=== PATIENT | female | born 1950 | race Caucasian/White ===

== ENCOUNTER 2017-02-07 11:15 | Observation (INO) | payer MEDICARE, OTHER ==
[2017-02-07] VITALS (7 sets, daily range): BP systolic 148–172; BP diastolic 72–78; PULSE 58–69; RESP 17–20; TEMP 97.5–99.9; O2SAT 94–99
[~2017-02-07] VITALS: Ht 154.9 cm; Wt 72.5 kg
[~2017-02-07 11:15] MED LIST: ASPI81 PO; ATAC16TA4 PO; CHEL50TA PO; CIPR0.3S LEFT EAR; CIPR750T10 PO; CYMB30CA PO; DILT240C7 PO; FAMC500T23 PO; FISH1000 PO; MESA1000R PR; METO25CR OR; THYR15 PO; WAL-10TA2 PO
--- NOTE | 2017-02-07 11:41 | PD ---
Physical Exam Time Seen by Provider: 11:36 Narrative 66 y/o female here with slurred speech, facial droop which started 2 weeks ago. She saw her PCP Shabnam Lockhart 2 days ago, had outpatient ct brain as well as US of carotids 2 days ago. Seen by foot and ankle surgeon(Chip) today and sent here. Vital signs reviewed. Seen at triage desk. Awaiting bed placement. Data Data Last Documented VS Vital Signs Date Time Temp Pulse Resp B/P Pulse Ox O2 Delivery O2 Flow Rate FiO2 02/07/17 11:17 99.9 66 20 172/78 94 Room Air [facility] Medical Record Reviewed: Yes Supervised Visit with CHRIS: No Tj Atkins Feb 07, 2017 11:40
--- NOTE | 2017-02-07 11:54 | PD ---
HPI Chief Complaint: Neuro Symptoms/ Deficits Time Seen by Provider: 11:54 Travel History International Travel<30 days: No Contact w/Intl Traveler<30days: No Traveled to known affect area: No History of Present Illness HPI 66 YO F presents to the ED for evaluation of 2 week history of facial droop, slurred speech. Patient unsure when symptoms first started. She states that she feels like her tongue protrudes from her mouth. She denies fever, chills, headaches, dizziness, difficulties with gait, weakness of the extremities, loss of strength, chest pain, palpitations. She saw her primary care provider (Ashlee Peoples) 2 days ago and had outpatient imaging of the brain and carotids. She saw her linux network administrator, Dr. Saunders today. He observed changes in the patient's speech and advised her to come to the ED. PFSH Past Medical History Anxiety: Yes Depression: Yes Cerebrovascular Accident: Yes Diverticulitis: Yes Gastrointestinal Disorders: Yes (ULCERATIVE COLITIS) Genitourinary: Yes (GENITAL HERPES) Hypertension: Yes Musculoskeletal: Yes (SCOLIOSIS WITH A NOBLE) Neurologic: Yes (HX MENINGITIS) Psychiatric: Yes (SUICIDE ATTEMPT 2004) ?: Not Past Surgical History Gynecologic Surgery: Yes (OOPHERECTOMY 2004) Hysterectomy: Yes Other Surgery: Yes (feet) Social History Alcohol Use: No Tobacco Use: No Substance Use: No Allergies-Medications (Allergen,Severity, Reaction): Coded Allergies: Augmentin (Verified Allergy, Mild, 12/09/15) Codeine (Verified Allergy, Mild, 12/09/15) Percocet (Verified Allergy, Mild, 12/09/15) Sulfa (Verified Allergy, Mild, 12/09/15) Tetanus Immune Globulin (Verified Allergy, Mild, 12/09/15) Xanax (Verified Allergy, Mild, 12/09/15) Reported Meds & Prescriptions Reported Meds & Active Scripts Active Reported Gabapentin 300 Mg Cap 300 Mg PO HS Thyroid (Thyroid (Porcine) (Bulk)) 1 Pow Pow 30 DAILY Metoprolol Succinate ER 24 HR (Metoprolol Succinate) 25 Mg Tab 25 Mg PO DAILY Canasa Supp (Mesalamine) 1,000 Mg Supp 1,000 Mg RECTAL HS [famvir] [address] (Duloxetine HCl) 30 Mg Capdr 30 Mg PO DAILY Aspirin 81 Mg Chew 81 Mg CHEW DAILY Review of Systems Except as stated in HPI: all other systems reviewed are Neg Physical Exam Narrative GENERAL: Well-nourished, well-developed white female in no acute distress. SKIN: Focused skin assessment warm/dry. HEAD: Normocephalic. Atraumatic. EYES: No scleral icterus. No injection or drainage. PERRLA. EOMI. NECK: Supple, trachea midline. No JVD or lymphadenopathy. CARDIOVASCULAR: Regular rate and rhythm without murmurs, gallops, or rubs. RESPIRATORY: Breath sounds clear and equal bilaterally. No accessory muscle use. GASTROINTESTINAL: Abdomen soft, non-tender, nondistended. Active bowel sounds. MUSCULOSKELETAL: No cyanosis, or edema. NEUROLOGICAL: Awake and alert. Cranial nerves II through XII intact. Motor and sensory grossly within normal limits. 5/5 muscle strength in all muscle groups. No pronator drift. No ataxia. Slurred speech. Patient's legs are constantly in motion which she states is normal for her. BACK: Nontender without obvious deformity. No CVA tenderness. Data Data Last Documented VS Vital Signs Date Time Temp Pulse Resp B/P Pulse Ox O2 Delivery O2 Flow Rate FiO2 02/07/17 12:44 99 02/07/17 11:17 99.9 66 20 172/[address] Brain W/O Iv Contrast(Rout) (02/07/17 12:20) Electrocardiogram (02/07/17 12:37) Complete Blood Count With Diff (02/07/17 12:37) Comprehensive Metabolic Panel (02/07/17 12:37) Magnesium (Mg) (02/07/17 12:37) Ckmb (Isoenzyme) Profile (02/07/17 12:37) Troponin I (02/07/17 12:37) Act Partial Throm Time (Ptt) (02/07/17 12:37) Prothrombin Time / Inr (Pt) (02/07/17 12:37) Chest, Single Ap (02/07/17 12:37) Ecg Monitoring (02/07/17 12:37) Iv Access Insert/Monitor (02/07/17 12:37) Oximetry (02/07/17 12:37) Sodium Chloride 0.9% Flush (Ns Flush) (02/07/17 12:45) CKMB (02/07/17 12:40) CKMB% (02/07/17 12:40) Aspirin Chew (Aspirin Chew) (02/08/17 09:00) Duloxetine Dr (Cymbalta Dr) (02/08/17 09:00) Gabapentin (Neurontin) (02/07/17 21:00) Mesalamine Supp (Canasa Supp) (02/07/17 21:00) Metoprolol Succinate Er (Toprol Xl) (02/08/17 09:00) Admit Order (Ed Use Only) (02/07/17 14:06) Labs Laboratory Tests Test 02/07/17 12:40 White Blood Count 8.1 TH/MM3 Red Blood Count 4.38 MIL/MM3 Hemoglobin 13.3 GM/DL Hematocrit 41.3 % Mean Corpuscular Volume 94.3 FL Mean Corpuscular Hemoglobin 30.3 PG Mean Corpuscular Hemoglobin 32.2 % Concent Red Cell Distribution Width 14.2 % Platelet Count 207 TH/MM3 Mean Platelet Volume 11.7 FL Neutrophils (%) (Auto) 70.5 % Lymphocytes (%) (Auto) 18.7 % Monocytes (%) (Auto) 9.0 % Eosinophils (%) (Auto) 1.2 % Basophils (%) (Auto) 0.6 % Neutrophils # (Auto) 5.7 TH/MM3 Lymphocytes # (Auto) 1.5 TH/MM3 Monocytes # (Auto) 0.7 TH/MM3 Eosinophils # (Auto) 0.1 TH/MM3 Basophils # (Auto) 0.1 TH/MM3 CBC Comment DIFF FINAL Differential Comment Prothrombin Time 11.3 SEC Prothromb Time International 1.0 RATIO Ratio Activated Partial 27.5 SEC Thromboplast Time Sodium Level 138 MEQ/L Potassium Level 4.1 MEQ/L Chloride Level 100 MEQ/L Carbon Dioxide Level 30.7 MEQ/L Anion Gap 7 MEQ/L Blood Urea Nitrogen 16 MG/DL Creatinine 0.71 MG/DL Estimat Glomerular Filtration 82 ML/MIN Rate Random Glucose 83 MG/DL Calcium Level 9.4 MG/DL Magnesium Level 2.0 MG/DL Total Bilirubin 1.6 MG/DL Aspartate Amino Transf 28 U/L (AST/SGOT) Alanine Aminotransferase 29 U/L (ALT/SGPT) Alkaline Phosphatase 110 U/L Total Creatine Kinase 176 U/L Creatine Kinase MB 3.8 NG/ML Troponin I LESS THAN 0.02 NG/ML Total Protein 7.9 GM/DL Albumin 3.9 GM/DL [facility] Medical Decision Making Medical Screen Exam Complete: Yes Emergency Medical Condition: Yes Interpretation(s) EKG rate 60, paced rhythm CA interval through 20 ms, QRS 92 ms, QTC 409 ms. Normal axis. Reviewed by Dr. Johns. Differential Diagnosis stroke versus TIA versus electrolyte abnormality versus Narrative Course 66 YO F with PMH of UC presents to the ED for evaluation of 2 week history of facial droop, slurred speech. Patient unsure when symptoms first started. She states that she feels like her tongue protrudes from her mouth. She saw PCP ( Ashlee Peoples) 2 days ago and had outpatient imaging of the brain and carotids. Dr. Saunders noted changes in the patient's speech in the office today and advised her to come to the ED. Vitals reviewed. Physical exam reveals very subtle left facial droop, slurred speech. The patient is in constant motion which she states is her normal. No pronator drift, extremity weakness or ataxia. Dr. Johns and I reviewed the outpatient images, no official read yet. CBC: WBC 8.1. Hemoglobin 13.3 CMP: Bilirubin 1.6 INR: 1.0 UA: Moderate bacteria, culture pending CT brain: Mild cerebral atrophy and chronic ischemic vessel vasculopathy CXR: Normal exam, thoracic spinal noble Cardiac enzymes: CK-MB 3.8 Magnesium 20 EKG as above Discussed the patient, work up and plan with Dr. Johns. Patient agreeable to admission. I spoke with Dr. Murillo who will accept the patient for observation on the medicine service. Please see medicine notes for disposition. Diagnosis Primary Impression: TIA (transient ischemic attack) Qualified Code: G45.9 - Transient cerebral ischemia, unspecified type Additional Impressions: Slurred speech Facial droop Admitting Information Admitting Physician Requests: Observation Marci Noel Feb 07, 2017 11:54 Marci Noel Feb 07, 2017 11:54
[2017-02-07] MEDS ORDERED: THYR0.237 (11:58)
[2017-02-07] MEDS ORDERED: CANA10002 RECTAL (11:58)
[2017-02-07] MEDS ORDERED: METO25TA6 PO (11:58)
[2017-02-07] MEDS ORDERED: GABA300C5 PO (11:58)
[2017-02-07] MEDS ORDERED: famvir (11:58)
[2017-02-07] MEDS ORDERED: ASPI81CH CHEW (11:58)
[2017-02-07] MEDS ORDERED: CYMB30CA PO (11:58)
[2017-02-07] MEDS ORDERED: SODIUM CHLORIDE 0.9% FLUSH 10 ML FLUSH IVF PRN (12:45)
[2017-02-07 12:53] LABS: AUTOMATED NEUTROPHIL # 5.7 TH/MM3 (1.8-7.7); BASOPHIL # 0.1 TH/MM3 (0-0.2); BASOPHIL % 0.6 % (0.0-2.0); EOSINOPHIL # 0.1 TH/MM3 (0-0.4); EOSINOPHIL % 1.2 % (0.0-4.0); HEMATOCRIT 41.3 % (35.0-46.0); HEMO FLAGS DIFF FINAL; LYMPH % 18.7 % (9.0-44.0); LYMPHOCYTE # 1.5 TH/MM3 (1.0-4.8); MEAN CELL VOLUME 94.3 FL (80.0-100.0); MEAN CORPUSCULAR HEMOGLOBIN 30.3 PG (27.0-34.0); MEAN CORPUSCULAR HGB CONC 32.2 % (32.0-36.0); NEUT % 70.5 % (16.0-70.0); PLATELET COUNT 207 TH/MM3 (150-450); RED BLOOD COUNT 4.38 MIL/MM3 (4.00-5.30); RED CELL DISTRIBUTION WIDTH 14.2 % (11.6-17.2); WHITE BLOOD COUNT 8.1 TH/MM3 (4.0-11.0)
[2017-02-07 13:05] LABS: APTT (PATIENT) 27.5 SEC (24.3-30.1); PROTHROMBIN TIME - PATIENT 11.3 SEC (9.8-11.6)
[2017-02-07 13:18] LABS: ALT (GPT) 29 U/L (10-53)
[2017-02-07 13:22] LABS: AST (GOT) 28 U/L (15-37); CHLORIDE 100 MEQ/L (98-107); GLOMERULAR FILTRATION RATE 82 ML/MIN (>89); POTASSIUM 4.1 MEQ/L (3.5-5.1); TOTAL BILIRUBIN ADULT 1.6 MG/DL (0.2-1.0)
[2017-02-07 13:23] LABS: ALKALINE PHOSPHATASE 110 U/L (45-117); ANION GAP 7 MEQ/L (5-15); BICARBONATE 30.7 MEQ/L (21.0-32.0); BLOOD UREA NITROGEN 16 MG/DL (7-18); CREATINE KINASE 176 U/L (26-192); SODIUM (NA) 138 MEQ/L (136-145)
[2017-02-07 13:36] LABS: CKMB 3.8 NG/ML (0.5-3.6)
--- NOTE | 2017-02-07 13:45 | RADRPT ---
EXAM DATE/TIME: 02/07/2017 13:21 [facility] COMPARISON: No previous studies available for comparison. INDICATIONS : Slurred speech with mild left facial droop for 2 weeks. RADIATION DOSE: 56.35 CTDIvol (mGy) MEDICAL HISTORY : Hypertension. SURGICAL HISTORY : None. ENCOUNTER: Initial ACUITY: 2 weeks PAIN SCALE: 0/10 LOCATION: cranial TECHNIQUE: Multiple contiguous axial images were obtained of the head. Using automated exposure control and adj ustment of the mA and/or kV according to patient size, radiation dose was kept as low as reasonably a chievable to obtain optimal diagnostic quality images. DICOM format image data is available electro nically for review and comparison. FINDINGS: CEREBRUM: The ventricles are normal for age. Scattered areas of low-attenuation throughout the white matter. Mi ld cerebral atrophy. No evidence of midline shift, mass lesion, hemorrhage or acute infarction. No extra-axial fluid collections are seen. POSTERIOR FOSSA: The cerebellum and brainstem are intact. The 4th ventricle is midline. The cerebellopontine angle i s unremarkable. EXTRACRANIAL: The visualized portion of the orbits is intact. SKULL: The calvaria is intact. No evidence of skull fracture. CONCLUSION: Mild cerebral atrophy and chronic ischemic small vessel vasculopathy. Lenny Tong MD on February 07, 2017 at 13:43 Board Certified Radiologist. This report was verified electronically.
[2017-02-07] MEDS ORDERED: LACTULOSE SYRUP 20 GM/30 ML CUP PO PRN (14:15)
[2017-02-07] MEDS ORDERED: SODIUM CHLORIDE 0.9% FLUSH 10 ML FLUSH IV FLUSH PRN (14:15)
[2017-02-07] MEDS ORDERED: TEMAZEPAM 15 MG CAP PO PRN (14:15)
[2017-02-07] MEDS ORDERED: BISACODYL 10 MG SUPP RECTAL PRN (14:15)
[2017-02-07] MEDS ORDERED: NALOXONE HCL 0.4 MG/ML AMP IV PRN (14:15)
[2017-02-07] MEDS ORDERED: ONDANSETRON HCL 4 MG/2 ML VIAL IVP PRN (14:15)
[2017-02-07] MEDS ORDERED: SENNOSIDES 8.6 MG TAB PO PRN (14:15)
[2017-02-07] MEDS ORDERED: MAGNESIUM HYDROXIDE SUSP 30 ML CUP PO PRN (14:15)
--- NOTE | 2017-02-07 14:28 | RADRPT ---
EXAM DATE/TIME: 02/07/2017 12:51 [facility] COMPARISON: No previous studies available for comparison. INDICATIONS : Possible stroke 2 weeks ago, left side of face numbness. MEDICAL HISTORY : None. SURGICAL HISTORY : None. ENCOUNTER: Initial ACUITY: 2 weeks PAIN SCORE: 0/10 LOCATION: Bilateral chest FINDINGS: A single view of the chest demonstrates the lungs to be symmetrically aerated without evidence of mas s, infiltrate or effusion. The cardiomediastinal contours are unremarkable. Osseous structures are intact. CONCLUSION: Normal examination. Thoracic spine olivia. Robin Velásquez MD on February 07, 2017 at 14:26 Board Certified Radiologist. This report was verified electronically.
--- NOTE | 2017-02-07 16:56 | ECHRPT ---
Indication: CONCLUSIONS The left ventricular systolic function is normal with an estimated ejection fraction in the range of 55-60%. Wall thickness is measured at the upper limits of normal. Mild mitral valve regurgitation. There is mild tricuspid valve regurgitation. BP: 172 / 78 HR: 70 Rhythm: Sinus MEASUREMENTS (Male / Female) Normal Values Technical Quality:Good 2D ECHO LV Diastolic Diameter PLAX 5.3 cm 4.2 - 5.9 / 3.9 - 5.3 cm LV Systolic Diameter PLAX 4.0 cm IVS Diastolic Thickness 1.1 cm 0.6 - 1.0 / 0.6 - 0.9 cm LVPW Diastolic Thickness 1.1 cm 0.6 - 1.0 / 0.6 - 0.9 cm LV Relative Wall Thickness 0.4 LVOT Diameter 2.0 cm M-MODE Aortic Root Diameter MM 2.4 cm LA Systolic Diameter MM 3.0 cm LA Ao Ratio MM 1.3 AV Cusp Separation MM 1.6 cm DOPPLER AV Peak Velocity 153.0 cm/s AV Peak Gradient 9.4 mmHg LVOT Peak Velocity 101.0 cm/s LVOT Peak Gradient 4.1 mmHg AV Area Cont Eq pk 2.1 cm MR Peak Velocity 247.0 cm/s MR Peak Gradient 24.4 mmHg Mitral E Point Velocity 69.1 cm/s Mitral A Point Velocity 48.9 cm/s Mitral E to A Ratio 1.4 LV E' Lateral Velocity 4.8 cm/s Mitral E to LV E' Lateral Ratio 14.5 LV E' Septal Velocity 7.6 cm/s Mitral E to LV E' Septal Ratio 9.1 TR Peak Velocity 259.0 cm/s TR Peak Gradient 26.8 mmHg PV Peak Velocity 110.0 cm/s PV Peak Gradient 4.8 mmHg FINDINGS LEFT VENTRICLE The left ventricular systolic function is normal with an estimated ejection fraction in the range of 55-60%. Wall thickness is measured at the upper limits of normal. Normal left ventricular size. RIGHT VENTRICLE Normal right ventricular size and systolic function. LEFT ATRIUM The left atrial size is normal. RIGHT ATRIUM The right atrial size is normal. ATRIAL SEPTUM The interatrial septum not well visualized. AORTA The aortic root and proximal ascending aorta are not well visualized. MITRAL VALVE Mild mitral valve regurgitation. Structurally normal mitral valve. AORTIC VALVE Trileaflet aortic valve. No aortic valve stenosis or regurgitation. TRICUSPID VALVE There is mild tricuspid valve regurgitation. The estimated pulmonary arterial pressure is 37 mmHg. PULMONARY VALVE The pulmonary valve is not well visualized. No pulmonary valve regurgitation. VESSELS The inferior vena cava is normal in size. PERICARDIUM No pericardial effusion. Smith Ponce DO (Electronically Signed) Final Date:07 February 2017 16:55
--- NOTE | 2017-02-07 17:28 | MH ---
cc: HILARIO FONSECA MD DATE OF ADMISSION: 02/07/2017 CHIEF COMPLAINT: Facial droop with change in speech. TRAVEL IN THE LAST THIRTY DAYS: None. HISTORY OF PRESENT ILLNESS: This is a pleasant 66-year-old white female who had been in her usual state of health up until the past few weeks. The patient states that she did not note any acute changes in her speech or mouth, but noted that she felt her tongue was larger than normal. She also noted some mild erythema and burning on her tongue. She used toothpaste to coat her tongue and to control the pain. The patient states, and according to the record, that her family noticed the change in her speech and facial droop. She went to see her primary care provider approximately two days ago and had outpatient imaging of her brain and carotids. She was seen per cardiology today, Dr. Saunders, and was advised to come to the emergency room for further workup. The patient denies any recent headaches. Denies any change in her stamina. No acute weakness or fatigue. No recent weight gain or weight loss. No chest pain, no shortness of breath. She denies any changes in her balance or gait. She does note chronic tendinitis in her lower extremities, which does affect her walking at times, but this is nothing new to her symptoms. The patient does note some increased stressors in her life but no other acute issues. The patient notes the only changes that she has made in her routine is that she has been taking energy pills but an undisclosed amount or length of time she has been taking them. She has right-sided facial droop and slurred speech with tongue protruding to the left with her speech. The patient has denied any fever. PAST MEDICAL HISTORY: According to the record and the patient: 1. Anxiety. 2. Depressive disorder. 3. Diverticulitis. 4. Ulcerative colitis. 5. Genital herpes. 6. Hypertension. 7. Scoliosis. 8. Degenerative disc disease. 9. History of meningitis. 10. Suicide attempt in 2004. 11. CVA. PAST SURGICAL HISTORY: 1. Hysterectomy. 2. Some type of foot surgery. 3. Oophorectomy. ALLERGIES: 1. AUGMENTIN. 2. CODEINE. 3. PERCOCET. 4. SULFA. 5. TETANUS GLOBULIN. 6. XANAX. 7. THE PATIENT STATES SHE IS ALLERGIC TO MINT BUT DID USE SOME TOOTHPASTE TO COAT HER TONGUE FOR THE PAIN. REPORTED MEDICATIONS: 1. Thyroid medications. 2. Gabapentin. 3. Metoprolol. 4. Cymbalta. 5. Aspirin. 6. Mesalamine. 7. The patient uses a C-PAP at night for her sleep. SOCIAL HISTORY: The patient is and currently lives with her . She has some grandchildren who have been recently visiting but do not live in the home with her. Occasional social mixed drink but this is rare. No tobacco. No illicit drug use. REVIEW OF SYSTEMS: A twelve-point review was obtained. Positives noted in the history of present illness, which include erythema and some mild bleeding of her tongue, right-sided facial droop. She did note positive for tongue erythema and mild edema. Other systems negative or unremarkable unless mentioned in the history of present illness. The patient had denied any fever. PHYSICAL EXAMINATION: VITAL SIGNS: Temperature 99.9, pulse 66, respirations 20, blood pressure 172/78, O2 sat 94 currently on room air. GENERAL: Mildly obese well-nourished white female who looks to be her stated age resting in the bed. She is awake. SKIN: Skin is pink mucous membranes warm and dry. HEAD, EYES, EARS, NOSE, THROAT: No scleral icterus. No exudate. Oral cavity shows strawberries tongue. The tip of the tongue deviates to the left with attempting to speak. She has a right facial droop. NECK: The neck is supple. CARDIOVASCULAR: S1-S2 regular rate and rhythm. No murmurs, rubs, gallops, no edema. Pulses were intact. LUNGS: Essentially clear anteriorly and posteriorly without wheezes, rales or rhonchi. ABDOMEN: Round, soft, nontender, nondistended. Active bowel sounds. : Deferred. MUSCULOSKELETAL: No obvious deformities in her extremities. She can overcome resistance. Her hand quality consultant are equal. NEUROLOGIC: The patient is awake, responding appropriately to simple questions. She does have a noted right facial droop with some tongue deviation to the last. Speech is slurred but understandable. Equal hand quality consultant. 5/5 on her muscle strength. PSYCHIATRIC: Mood and affect are appropriate with some mild anxiety over the current condition. DIAGNOSTIC DATA: WBC count 8.1, RBC 4.38, hemoglobin 13.3, hematocrit 41.3, platelet count 207,000. MPV 11.7. Neutrophil percentage 70.5, monocyte percentage 9. All other differential numbers are normal range. Sodium 138, potassium 4.1, chloride of 100, carbon dioxide 30.7, anion gap 7, BUN 16, creatinine 0.71, GFR 82, glucose 83, bilirubin 1.6. Troponin less than 0.02 with an MB percentage of 3.8. PT and INR 1. IMAGING STUDIES: Chest x-ray shows normal exam. Thoracic spine olivia noted. CT of the head shows mild cerebral atrophy with chronic ischemic small vessel vasculopathy. ASSESSMENT AND PLAN: 1. Possible TIA, rule out CVA with positive findings of facial droop, slurred speech, right facial droop. 2. Anxiety and depressive disorder. 3. Low grade fever, unspecified cause. 4. Degenerative disc disease with history of scoliosis. 5. History of diverticulitis. 6. History of hypertension. PLAN: 1. Monitor in observation. 2. Will monitor neuro checks and vital signs q. 4 and as warranted. 3. Activity can be out of bed but only with assistance. 4. Cardiac ECG monitoring constant. 5. Heart-healthy diet. 6. Gentle hydration with IV fluids. 7. PRN medications for sleep, nausea. 8. Aspirin for DVT prophylaxis as well as heparin subcutaneous. 9. Bowel regimen with laxatives and stool softeners daily and as warranted. 10. Peptic ulcer disease prophylaxis with Protonix. 11. Reconcile medications as warranted. 12. Will have neuro consult and evaluate for his expert opinion. 13. MRI of the brain without contrast has been ordered and pending. 14. Will continue testing and acute workup and neuro consult for further plan of care needed for this patient. We will continue to follow. Dictated by JESUS MANUEL Olivarez. MD MARIEL Goldman/SABINA /3:03 PM /5:04 PM seen, examined by myself, Dr Fonseca, today Discussed with patient Discussed with mid level provider Right facial droop, stroke versus Dickinson's palsy Not Entirely clear if this is lower or upper motor neuron on examination Could not have an MRI of the brain because of a bladder stimulator We will consult neurology The exam, history, and the medical decision-making described in the above note were completed with the assistance of the mid-level provider. I reviewed the findings presented. I attest that I had a [id number] encounter with the patient on the same day, and personally performed and documented my assessment and findings in the medical record. PHYLLIS
[2017-02-07] MEDS: HEPARIN SODIUM - SQ 10,000 UNITS/ML VIAL SQ SCH (17:45)
[2017-02-07] MEDS: ASPIRIN 81 MG CHEW TAB CHEW SCH (17:45)
[2017-02-07] MEDS: PANTOPRAZOLE SOD 40 MG DELAYED RELEASE TAB PO SCH (17:45)
[2017-02-07] MEDS: SODIUM CHLOR 0.9% 1000 ML INJ 1,000 ML IV SCH (17:46)
[2017-02-07] MEDS ORDERED: GABAPENTIN 300 MG CAP PO SCH (21:00)
[2017-02-07] MEDS ORDERED: MESALAMINE 1000 MG SUPP RECTAL SCH (21:00)
[2017-02-07] MEDS: SODIUM CHLORIDE 0.9% FLUSH 10 ML FLUSH IV FLUSH SCH (21:31)
[2017-02-07] MEDS: DOCUSATE SODIUM 50 MG/SENNA 8.6 MG TAB PO SCH (21:31)
--- NOTE | 2017-02-07 22:16 | MB ---
cc: ELDA VALDES M.D. DATE OF CONSULTATION: 02/07/2017 DATE OF : 1950, 66 YEARS OLD REASON FOR CONSULTATION Facial droop, slurred speech. HISTORY OF PRESENT ILLNESS The patient is a 66-year-old woman in the usual state of health up until about two weeks ago, noted that she had some speech changes and the tongue felt numb with some facial asymmetry. Apparently she saw her primary care a couple days ago who sent her here for evaluation. She denies any headache, her states she has had some tremor with her left hand, no weakness in arms or legs, no balance issues. PAST MEDICAL HISTORY 1. Anxiety. 2. Depression. 3. Diverticulitis. 4. Ulcerative colitis. 5. Genital herpes. 6. Hypertension. 7. Scoliosis. 8. Degenerative disc disease. She has a stimulator in her spine. 9. History of meningitis. 10. History of suicide attempt in 2004. 11. Stroke questionable history in the past. PAST SURGICAL HISTORY 1. Hysterectomy. 2. Foot surgery. 3. Oophorectomy. ALLERGIES AUGMENTIN, CODEINE, PERCOCET, SULFA, TETANUS, XANAX, AND I AM TOLD BY THE NURSE SHE IS ALLERGIC TO IODINE. HOME MEDICATIONS 1. Thyroid. 2. Gabapentin. 3. Metoprolol. 4. Cymbalta. 5. Aspirin. 6. Mesalamine. 7. CPAP. She has a history of sleep apnea she uses CPAP. 8. Her states that she is also on Seroquel, I do not see that. SOCIAL HISTORY , lives with her . Socially she drinks rarely. No tobacco. No drugs. PHYSICAL EXAMINATION VITAL SIGNS: Her temperature is 97.5, pulse 69, respiratory rate 18, blood pressure 148/73, satting at 94%. NECK: Her neck is supple. There are no appreciable bruits. HEART: Her heart is regular. LUNG: Lungs are clear. NEUROLOGIC: She is awake and alert. She sounds slightly dysarthric. There is a right facial asymmetry. Facial sensation is normal. She states inside her mouth her gums and tongue feel back to normal. Motor serna she does not exhibit drift or leg lag. Cerebellar testing: There is a tremor with intention. Left-sided DTRs are brisk, toes are neutral. Gait is withheld. Sensory in the extremities are normal. LABORATORY DATA Labs show basically unremarkable CBC. Coag panel normal. Chemistries unremarkable except total bili is 1.6, GFR is 86. She had a CT of the head performed on admission showing mild atrophy and chronic vessel disease, ischemic disease. Unfortunately, she cannot have an MRI due to the stimulator and I do not want to put her through a CTA due to allergies to iodine contrast media. I think we should just go ahead and do a carotid ultrasound, a 2D echo, place her on some aspirin therapy, check her lipids and if indicated start her on a statin. Outpatient Holter monitor and for her tremor at this point just observe, certainly there is gabapentin that used as second-line, I think primidone can be used but would make her really sleepy. Other options would be a beta joel if her heart rate can tolerate it such as Inderal. Continue current workup as outlined. MD SHAW Brown/DANNA /6:00 PM /9:59 PM
[2017-02-07 22:40] LABS: FREE T4 0.91 NG/DL (0.76-1.46); HDL CHOLESTEROL 55.6 MG/DL (40.0-60.0); LDL CHOLESTEROL 20 MG/DL (0-99)
[2017-02-08] VITALS (7 sets, daily range): BP systolic 124–153; BP diastolic 56–74; PULSE 54–68; RESP 18; TEMP 98.3–98.9; O2SAT 94–98
[2017-02-08] MEDS: SODIUM CHLOR 0.9% 1000 ML INJ 1,000 ML IV SCH (02:00)
[2017-02-08] MEDS: HEPARIN SODIUM - SQ 10,000 UNITS/ML VIAL SQ SCH (04:54)
[2017-02-08] MEDS ORDERED: DULO1CAP3 PO (05:04)
[2017-02-08] MEDS ORDERED: TOPR25TA PO (05:04)
[2017-02-08] MEDS ORDERED: ZIPR1CAP6 PO (05:04)
[2017-02-08] MEDS ORDERED: TRAM-492 PO (05:04)
[2017-02-08] MEDS ORDERED: L-THPOW (05:04)
[2017-02-08] MEDS ORDERED: ATOR40TA16 PO (05:04)
[2017-02-08] MEDS ORDERED: TRIH5TAB2 PO (05:04)
[2017-02-08] MEDS ORDERED: PANT40TA3 PO (05:04)
[2017-02-08 07:50] LABS: BASOPHIL % 0.5 % (0.0-2.0); EOSINOPHIL # 0.1 TH/MM3 (0-0.4); EOSINOPHIL % 1.3 % (0.0-4.0); HEMATOCRIT 38.9 % (35.0-46.0); HEMO FLAGS DIFF FINAL; LYMPH % 19.7 % (9.0-44.0); LYMPHOCYTE # 1.4 TH/MM3 (1.0-4.8); MEAN CELL VOLUME 92.7 FL (80.0-100.0); MEAN CORPUSCULAR HEMOGLOBIN 30.6 PG (27.0-34.0); MONO % 9.6 % (0.0-8.0); NEUT % 68.9 % (16.0-70.0); PLATELET COUNT 193 TH/MM3 (150-450); RED CELL DISTRIBUTION WIDTH 14.1 % (11.6-17.2); WHITE BLOOD COUNT 7.3 TH/MM3 (4.0-11.0)
[2017-02-08 08:26] LABS: BICARBONATE 31.2 MEQ/L (21.0-32.0); POTASSIUM 3.6 MEQ/L (3.5-5.1)
[2017-02-08 08:31] LABS: TOTAL BILIRUBIN ADULT 1.2 MG/DL (0.2-1.0)
[2017-02-08] MEDS ORDERED: METOPROLOL SUCCINATE 25 MG EXTENDED RELEASE TAB PO SCH (09:00)
[2017-02-08] MEDS: SODIUM CHLORIDE 0.9% FLUSH 10 ML FLUSH IV FLUSH SCH (09:00)
[2017-02-08] MEDS ORDERED: DULoxetine HCl DR 30 MG CAP PO SCH ×2 (09:00→21:00)
[2017-02-08] MEDS ORDERED: ASPIRIN 81 MG CHEW TAB CHEW SCH (09:00)
--- NOTE | 2017-02-08 09:07 | HHI.PR ---
Subjective Subjective Remarks Awake alert Resting in bed Speech appears to be clearer today, still persists Still has some mild facial droop Heart rate noted 58-68 over the last 12 hours (Socorro Santos) Review of Systems Constitutional Constitutional: Fatigue, Weakness Constitutional Remarks 10 point ROS done positives noted (Socorro Snatos) Throat Throat Remarks Speech slurring and facial drooping (Socorro Santos) GI/Abdomen GI/Abdominal Exam: Constipation (discussed bowel regimen no BM yet since admission, 48 hours) (Socorro Santos) Vitals/Results Vital Signs Vital Signs Date Time Temp Pulse Resp B/P Pulse Ox O2 Delivery O2 Flow Rate FiO2 02/08/17 07:49 98.9 58 18 152/70 98 02/08/17 03:48 65 02/08/17 03:27 98.6 68 18 153/74 96 02/08/17 00:01 58 02/07/17 23:32 97.9 65 18 160/72 98 02/07/17 20:12 58 02/07/17 20:03 156/72 02/07/17 19:38 99.3 63 17 165/72 95 02/07/17 15:51 97.5 69 18 148/73 94 02/07/17 12:44 99 02/07/17 11:17 99.9 66 20 172/78 94 Room Air (Socorro Santos) CBC/BMP: 02/08/17 0618 02/08/17 0618 Lab Results Laboratory Tests Test 02/07/17 02/07/17 02/08/17 12:40 21:22 06:18 White Blood Count 8.1 TH/MM3 7.3 TH/MM3 Red Blood Count 4.38 MIL/MM3 4.20 MIL/MM3 Hemoglobin 13.3 GM/DL 12.9 GM/DL Hematocrit 41.3 % 38.9 % Mean Corpuscular Volume 94.3 FL 92.7 FL Mean Corpuscular Hemoglobin 30.3 PG 30.6 PG Mean Corpuscular Hemoglobin 32.2 % 33.0 % Concent Red Cell Distribution Width 14.2 % 14.1 % Platelet Count 207 TH/MM3 193 TH/MM3 Mean Platelet Volume 11.7 FL 12.0 FL Neutrophils (%) (Auto) 70.5 % 68.9 % Lymphocytes (%) (Auto) 18.7 % 19.7 % Monocytes (%) (Auto) 9.0 % 9.6 % Eosinophils (%) (Auto) 1.2 % 1.3 % Basophils (%) (Auto) 0.6 % 0.5 % Neutrophils # (Auto) 5.7 TH/MM3 5.0 TH/MM3 Lymphocytes # (Auto) 1.5 TH/MM3 1.4 TH/MM3 Monocytes # (Auto) 0.7 TH/MM3 0.7 TH/MM3 Eosinophils # (Auto) 0.1 TH/MM3 0.1 TH/MM3 Basophils # (Auto) 0.1 TH/MM3 0.0 TH/MM3 CBC Comment DIFF FINAL DIFF FINAL Differential Comment Prothrombin Time 11.3 SEC Prothromb Time International 1.0 RATIO Ratio Activated Partial 27.5 SEC Thromboplast Time Sodium Level 138 MEQ/L 141 MEQ/L Potassium Level 4.1 MEQ/L 3.6 MEQ/L Chloride Level 100 MEQ/L 104 MEQ/L Carbon Dioxide Level 30.7 MEQ/L 31.2 MEQ/L Anion Gap 7 MEQ/L 6 MEQ/L Blood Urea Nitrogen 16 MG/DL 16 MG/DL Creatinine 0.71 MG/DL 0.77 MG/DL Estimat Glomerular Filtration 82 ML/MIN 75 ML/MIN Rate Random Glucose 83 MG/DL 83 MG/DL Calcium Level 9.4 MG/DL 9.1 MG/DL Magnesium Level 2.0 MG/DL Total Bilirubin 1.6 MG/DL 1.2 MG/DL Aspartate Amino Transf 28 U/L 18 U/L (AST/SGOT) Alanine Aminotransferase 29 U/L 23 U/L (ALT/SGPT) Alkaline Phosphatase 110 U/L 99 U/L Total Creatine Kinase 176 U/L Creatine Kinase MB 3.8 NG/ML Troponin I LESS THAN 0.02 NG/ML Total Protein 7.9 GM/DL 7.2 GM/DL Albumin 3.9 GM/DL 3.6 GM/DL Triglycerides Level 116 MG/DL Cholesterol Level 99 MG/DL LDL Cholesterol 20 MG/DL HDL Cholesterol 55.6 MG/DL Cholesterol/HDL Ratio 1.78 RATIO Vitamin B12 Level GREATER THAN 2000 PG/ML Free Thyroxine 0.91 NG/DL Thyroid Stimulating Hormone 2.160 uIU/ML 3rd Gen Direct Bilirubin 0.2 MG/DL Indirect Bilirubin 1.0 MG/DL (Bath,Socorro M. CRANE RIGGER) Physical Exam General General Appearance: Well Developed, Well Nourished (Danielle,Socorro M. CRANE RIGGER) Eyes Eye Exam: Pupils Reactive (Bath,Socorro M. CRANE RIGGER) Ears & Nose Ears & Nose Exam: Nasal Mucosa [place] (Bath,Socorro M. CRANE RIGGER) Throat Throat Exam: Oral Mucosa [place] & Moist Throat Remarks Positive for facial droop and speech slurring, mild improvement noted understandable (Bath,Socorro M. CRANE RIGGER) Neck Neck Exam: Neck Supple, Trachea Midline (Danielle,Socorro M. CRANE RIGGER) Pulmonary Resp Exam: Clear Bilaterally (Bath,Socorro M. CRANE RIGGER) Cardiology CV Exam: Regular, Bradycardia (mild at times at rest) (Bath,Socorro M. CRANE RIGGER) Musculoskeletal MS Exam: Joints Intact, Normal Tone (Bath,Socorro M. CRANE RIGGER) Integumentary Skin Exam: Warm, Dry, Intact (Danielle,Socorro M. CRANE RIGGER) Extremeties Extremities Exam: No Edema (Bath,Socorro M. CRANE RIGGER) Assessment/Plan Assessment/Plan 1. Possible TIA, rule out CVA with positive findings of facial droop, slurred speech, right facial droop. 2. Anxiety and depressive disorder. 3. Low grade fever, unspecified cause. 4. Degenerative disc disease with history of scoliosis. 5. History of diverticulitis. 6. History of hypertension. Vital signs reviewed normal trends for now heart rate does get as low as 58, - 68 Afebrile Labs reviewed, note echocardiogram with EF 55-60% mild MR and TR, ultrasound carotid pending Hypertension, degenerative disc disease. History of diverticulitis, all monitoring medical management Patient notes history of depression, request her Cymbalta be given at night if patient is still in the hospital for the next 24 hours. States this does help her rest. Discharge planning possible today or in a.m. dependent on further testing needed. Appreciate neuro consult and following, will also see as outpatient, carotid ultrasound pending TIA versus CVA, probable subacute Encouraged patient to increase activity today up in chair in ambulating in room Encourage nutrition, denies any problems with her swallow, echocardiogram done, see above note Discussed with patient Discussed with nurse Discussed with Dr. Murillo, seen on his behalf, 25 minutes with patient (Socorro Santos) Assessment/Plan seen, examined by myself, Dr Murillo, today 02/08/17 Discussed with patient She is doing better, right facial droop has relatively improved It is clearly upper motor neuron as she can move her right eyebrow without any problems She is to be discharged home 162 mg of aspirin daily Carotid ultrasound was done 2 days ago and she is to get the results as outpatient Echo was unremarkable She needs an event monitor for 3 weeks and to see neurologist Dr. Cooper secretly with the results Discussed with mid level provider The exam, history, and the medical decision-making described in the above note were completed with the assistance of the mid-level provider. I reviewed the findings presented. I attest that I had a [id number] encounter with the patient on the same day, and personally performed and documented my assessment and findings in the medical record. Total 45 minutes spent (Lisy Murillo MD) Socorro Santos Feb 08, 2017 09:07 Lisy Murillo MD Feb 08, 2017 14:45
[2017-02-08] MEDS: ASPIRIN 81 MG CHEW TAB CHEW SCH (09:08)
[2017-02-08] MEDS: DOCUSATE SODIUM 50 MG/SENNA 8.6 MG TAB PO SCH (09:08)
[2017-02-08] MEDS: PANTOPRAZOLE SOD 40 MG DELAYED RELEASE TAB PO SCH (09:08)
[2017-02-08] MEDS ORDERED: FAMC500T PO (11:48)
[2017-02-08] MEDS ORDERED: LISINOPRIL 5 MG TAB PO SCH (13:00)
[2017-02-08] MEDS ORDERED: LISI-519 PO (14:40)
[2017-02-08] MEDS ORDERED: ASPI81CH25 CHEW (14:40)
[2017-02-08] MEDS ORDERED: [UNRECOGNIZED DRUG - OTHER] TOPICAL (14:42)
--- NOTE | 2017-02-08 14:55 | HHI.DS ---
Discharge Summary Admission Date Feb 07, 2017 at 14:07 Discharge Date: Feb 08, 2017 Admitting Diagnosis slurred speech, facial droop Brief History This was a pleasant 66-year-old white female who had been in her usual state of health up until the past few weeks. The patient stated that she did not note any acute changes in her speech or mouth, but noted that she felt her tongue was larger than normal. She also noted some mild erythema and burning on her tongue. She used toothpaste to coat her tongue and to control the pain. The patient stated, and according to the record, that her family noticed the change in her speech and facial droop. She went to see her primary care provider approximately two days ago and had outpatient imaging of her brain and carotids. She was seen per cardiology today, Dr. Saunders, and was advised to come to the emergency room for further workup. CBC/BMP: 02/08/17 0618 02/08/17 0618 Significant Findings Laboratory Tests Test 02/07/17 02/07/17 02/08/17 12:40 21:22 06:18 Mean Platelet Volume 11.7 FL 12.0 FL (7.0-11.0) (7.0-11.0) Neutrophils (%) (Auto) 70.5 % (16.0-70.0) Monocytes (%) (Auto) 9.0 % (0.0-8.0) 9.6 % (0.0-8.0) Estimat Glomerular Filtration 82 ML/MIN (>89) 75 ML/MIN (>89) Rate Total Bilirubin 1.6 MG/DL 1.2 MG/DL (0.2-1.0) (0.2-1.0) Creatine Kinase MB 3.8 NG/ML (0.5-3.6) Troponin I LESS THAN 0.02 NG/ML (0.02-0.05) Cholesterol Level 99 MG/DL (120-200) Vitamin B12 Level GREATER THAN 2000 PG/ML (193-986) Indirect Bilirubin 1.0 MG/DL (0.0-0.8) Imaging Last Impressions Chest X-Ray 02/07/17 9557 Signed Impressions: Service Date/Time: January 12:51 - CONCLUSION: Normal examination. Thoracic spine olivia. Robin Velásquez MD Head CT 02/07/17 1220 Signed Impressions: Service Date/Time: January 13:21 - CONCLUSION: Mild cerebral atrophy and chronic ischemic small vessel vasculopathy. Lenny Tong MD Hospital Course Short diagnosis was TIA possible CVA Labs and vital signs were monitored and treated for any abnormals. Neurology consult was done, appreciate input. Patient is highly allergic to contrast media so was unable to have routine MRI, carotid ultrasound was normal range. Patient's symptoms seem to be subacute, symptoms have been going on for a couple weeks. Patient is going be monitored on an outpatient basis and see neuro and her PCP for any further needs. Patient was followed per [employer]OR [employer] and Dr. Murillo. Plan of care was discussed with patient, staff as well as her discharge planning Stable on discharge Pt Condition on Discharge: Stable Discharge Instructions Follow up Referrals: Neurology - 1 Month with Le Valdes MD New Medications: ([Event monitor]) EA TOPICAL DAILY Needs to wear event monitor for 3 weeks, results to go to neurologist Dr. VALDES stroke #1 Ref 0 Aspirin (Aspirin Low Strength) 81 Mg Chew 162 MG CHEW DAILY Blood Clot Prevention #30 Ref 6 EA Lisinopril (Lisinopril) 5 Mg Tab 5 MG PO DAILY Blood Pressure Management #30 Ref 6 TAB Continued Medications: Atorvastatin (Atorvastatin) 40 Mg Tab 40 MG PO HS Cholesterol Management #[address] (Cymbalta DR) 30 Mg Capdr 30 MG PO DAILY #30 Ref 0 CAP Famciclovir (Famciclovir) 500 Mg Tab 500 MG PO DAILY Mgmt Viral Infection Ref 0 TAB Gabapentin (Gabapentin) 300 Mg Cap 300 MG PO HS #30 Ref 0 CAP Levothyroxine (Bulk) (L-Thyroxine (Bulk)) Bulk Pow Mesalamine Supp (Canasa Supp) 1,000 Mg Supp 1000 MG RECTAL HS Ulcerative proctitis #30 Ref 0 SUPP Metoprolol Succinate ER 24 HR (Metoprolol Succinate ER 24 HR) 25 Mg Tab 25 MG PO DAILY #30 Ref 0 TAB Pantoprazole (Pantoprazole) 40 Mg Tab 40 MG PO DAILY Reflux #30 Ref 0 TAB Thyroid (Porcine) (Bulk) (Thyroid) 1 Pow Pow 30 DAILY Tramadol HCl (Tramadol Hydrochloride) 50 Mg Tab Trihexyphenidyl (Trihexyphenidyl) 5 Mg Tab 5 MG PO DAILY Parkinson Disease Mgmt #30 Ref 0 TAB Ziprasidone (Ziprasidone) 20 Mg Cap 20 MG PO BID #60 Ref 0 CAP Discontinued Medications: Aspirin (Aspirin) 81 Mg Chew 81 MG CHEW DAILY Ref [address] (Duloxetine DR) 60 Mg Capdr 60 MG PO DAILY #30 Ref 0 CAP Metoprolol Succinate ER 24 HR (Toprol XL) 25 Mg Tab 25 MG PO DAILY #30 Ref 0 TAB Socorro Santos Feb 08, 2017 14:55
--- NOTE | 2017-02-08 14:58 | EKG ---
Date Performed: 02/07/2017 Time Performed: 12:48:50 PTAGE: 66 years EKG: ELECTRONIC ATRIAL PACEMAKER SEPTAL MYOCARDIAL INFARCTION ST DEPRESSION, CONSIDER SUBENDOCAR DIAL INJURY ABNORMAL ECG NO PREVIOUS TRACING DOCTOR: Haresh Bowers Interpretating Date/Time 02/08/2017 14:54:43
== END 2017-02-08 17:47 | disposition home or self-care (01) ==
LOC: NEPE 11:15 → NEDA 14:07 → NEPGCP 15:09
PROVIDERS: ADMIT Specialist; ATTEND Specialist
DX: R29.810 Facial weakness (principal); R47.81 Slurred speech; G31.9 Degenerative disease of nervous system, unspecified; G45.9 Transient cerebral ischemic attack, unspecified; M77.9 Enthesopathy, unspecified; R94.31 Abnormal electrocardiogram [ECG] [EKG]; R00.1 Bradycardia, unspecified; F41.9 Anxiety disorder, unspecified; F32.9 Major depressive disorder, single episode, unspecified; I10 Essential (primary) hypertension; M41.9 Scoliosis, unspecified; E66.9 Obesity, unspecified; Z86.73 Personal history of transient ischemic attack (TIA), and cerebral infarction without residual deficits; Z86.61 Personal history of infections of the central nervous system; Z79.899 Other long term (current) drug therapy; Z79.82 Long term (current) use of aspirin
CPT/HCPCS: 70450; 71010; 80048; 80053; 80061; 80076; 82550; 82552; 82607; 83735; 84439; 84443; 84484; 85025; 85610; 85730; 93005; 93306; 99285; G0378; J1644; J7030

== ENCOUNTER 2017-02-13 15:41 | Emergency (ER) | payer MEDICARE, OTHER ==
[~2017-02-13] VITALS: Ht 154.9 cm; Wt 72.0 kg
[~2017-02-13 15:41] MED LIST changes: -ASPI81 PO; +ASPI81CH25 CHEW; -ATAC16TA4 PO; +ATOR40TA16 PO; +CANA10002 RECTAL; -CHEL50TA PO; -CIPR0.3S LEFT EAR; -CIPR750T10 PO; -DILT240C7 PO; +FAMC500T PO; -FAMC500T23 PO; -FISH1000 PO; +GABA300C5 PO; +L-THPOW; +LISI-519 PO; -MESA1000R PR; -METO25CR OR; +METO25TA6 PO; +PANT40TA3 PO; +THYR0.237; -THYR15 PO; +TRAM-492 PO; +TRIH5TAB2 PO; -WAL-10TA2 PO; +ZIPR1CAP6 PO; +[UNRECOGNIZED DRUG - OTHER] TOPICAL
[2017-02-13 15:44] VITALS: BP 226/101; PULSE 68; RESP 20; TEMP 98.5; O2SAT 94
[2017-02-13 15:46] VITALS: BP 209/92
[2017-02-13 17:36] VITALS: BP 184/81
[2017-02-13 18:04] VITALS: BP 193/84; PULSE 61; RESP 17; O2SAT 96
[2017-02-13] MEDS ORDERED: SODIUM CHLOR 0.9% 1000 ML INJ 1,000 ML IV ONE (18:20)
[2017-02-13] MEDS ORDERED: SODIUM CHLORIDE 0.9% FLUSH 10 ML FLUSH IVF PRN (18:30)
[2017-02-13] MEDS ORDERED: hydrALAZINE HCL 20 MG/ML VIAL IV PUSH ONE (18:30)
--- NOTE | 2017-02-13 18:49 | RADRPT ---
EXAM DATE/TIME: 02/13/2017 18:26 [place] COMPARISON: CHEST SINGLE AP, February 07, 2017, 12:51. INDICATIONS : Shortness of breath. MEDICAL HISTORY : None. SURGICAL HISTORY : None. ENCOUNTER: Initial ACUITY: 1 day PAIN SCORE: 0/10 LOCATION: chest FINDINGS: A single view of the chest demonstrates the lungs to be symmetrically aerated without evidence of mas s, infiltrate or effusion. The cardiomediastinal contours are unremarkable. Scoliosis and scoliotic rods noted. Cardiomegaly CONCLUSION: 1. Cardiomegaly with clear lungs. Lenny Tong MD on February 13, 2017 at 18:45 Board Certified Radiologist. This report was verified electronically.
[2017-02-13 18:58] VITALS: O2SAT 96
[2017-02-13] MEDS ORDERED: DULO1CAP3 PO (19:07)
[2017-02-13] MEDS ORDERED: KETOC2%T TOPICAL (19:07)
[2017-02-13] MEDS ORDERED: MODA200T12 PO (19:07)
[2017-02-13] MEDS ORDERED: FLUT1SPR5 EACH NARE (19:13)
[2017-02-13] MEDS ORDERED: APRI0.372 PO (19:13)
[2017-02-13] MEDS ORDERED: LEVO75TA3 PO (19:13)
--- NOTE | 2017-02-13 19:18 | PD ---
Physical Exam Date Seen by Provider: Feb 13, 2017 Time Seen by Provider: 19:15 Narrative The patient is a 66-year-old female was initially evaluated by the previous physician, Dr. Miner. Please refer to the initial history, physical, diagnostic evaluation, and treatment modality plan. Data Data Last Documented VS Vital Signs Date Time Temp Pulse Resp B/P Pulse Ox O2 Delivery O2 Flow Rate FiO2 02/13/17 18:58 96 Room Air 02/13/17 18:04 61 17 193/84 02/13/17 15:44 98.5 Orders Complete Blood Count With Diff (02/13/17 18:20) Comprehensive Metabolic Panel (02/13/17 18:20) Ckmb (Isoenzyme) Profile (02/13/17 18:20) Troponin I (02/13/17 18:20) Chest, Single Ap (02/13/17 18:20) Ct Brain W/O Iv Contrast(Rout) (02/13/17 18:20) Ecg Monitoring (02/13/17 18:20) Iv Access Insert/Monitor (02/13/17 18:20) Oximetry (02/13/17 18:20) Sodium Chloride 0.9% Flush (Ns Flush) (02/13/17 18:30) Sodium Chlor 0.9% 1000 Ml Inj (Ns 1000 M (02/13/17 18:20) Hydralazine Inj (Apresoline Inj) (02/13/17 18:30) CKMB (02/13/17 19:00) CKMB% (02/13/17 19:00) Labs Laboratory Tests Test 02/13/17 19:00 White Blood Count 7.5 TH/MM3 Red Blood Count 4.29 MIL/MM3 Hemoglobin 13.3 GM/DL Hematocrit 39.7 % Mean Corpuscular Volume 92.5 FL Mean Corpuscular Hemoglobin 30.9 PG Mean Corpuscular Hemoglobin 33.4 % Concent Red Cell Distribution Width 14.1 % Platelet Count 190 TH/MM3 Mean Platelet Volume 11.6 FL Neutrophils (%) (Auto) 69.1 % Lymphocytes (%) (Auto) 21.7 % Monocytes (%) (Auto) 7.6 % Eosinophils (%) (Auto) 1.1 % Basophils (%) (Auto) 0.5 % Neutrophils # (Auto) 5.2 TH/MM3 Lymphocytes # (Auto) 1.6 TH/MM3 Monocytes # (Auto) 0.6 TH/MM3 Eosinophils # (Auto) 0.1 TH/MM3 Basophils # (Auto) 0.0 TH/MM3 CBC Comment DIFF FINAL Differential Comment Sodium Level 140 MEQ/L Potassium Level 3.8 MEQ/L Chloride Level 104 MEQ/L Carbon Dioxide Level 30.3 MEQ/L Anion Gap 6 MEQ/L Blood Urea Nitrogen 13 MG/DL Creatinine 0.76 MG/DL Estimat Glomerular Filtration 76 ML/MIN Rate Random Glucose 86 MG/DL Calcium Level 9.1 MG/DL Total Bilirubin 1.2 MG/DL Aspartate Amino Transf 26 U/L (AST/SGOT) Alanine Aminotransferase 33 U/L (ALT/SGPT) Alkaline Phosphatase 103 U/L Total Creatine Kinase 126 U/L Creatine Kinase MB 2.3 NG/ML Troponin I LESS THAN 0.02 NG/ML Total Protein 7.2 GM/DL Albumin 3.7 GM/DL [facility] Medical Record Reviewed: Yes Supervised Visit with CHRIS: No Interpretation(s) EKG reveals normal sinus rhythm with a rate of 60. Nonspecific ST changes noted in lead V6, 1, and aVL. Last Impressions Chest X-Ray 02/13/17 1820 Signed Impressions: Service Date/Time: Monday, February 13, 2017 18:26 - CONCLUSION: 1. Cardiomegaly with clear lungs. Lenny Tong MD CT the brain reveals chronic small vessel ischemic vasculopathy. No acute intracranial abnormalities noted. Laboratory Tests Test 02/13/17 19:00 White Blood Count 7.5 TH/MM3 Red Blood Count 4.29 MIL/MM3 Hemoglobin 13.3 GM/DL Hematocrit 39.7 % Mean Corpuscular Volume 92.5 FL Mean Corpuscular Hemoglobin 30.9 PG Mean Corpuscular Hemoglobin 33.4 % Concent Red Cell Distribution Width 14.1 % Platelet Count 190 TH/MM3 Mean Platelet Volume 11.6 FL Neutrophils (%) (Auto) 69.1 % Lymphocytes (%) (Auto) 21.7 % Monocytes (%) (Auto) 7.6 % Eosinophils (%) (Auto) 1.1 % Basophils (%) (Auto) 0.5 % Neutrophils # (Auto) 5.2 TH/MM3 Lymphocytes # (Auto) 1.6 TH/MM3 Monocytes # (Auto) 0.6 TH/MM3 Eosinophils # (Auto) 0.1 TH/MM3 Basophils # (Auto) 0.0 TH/MM3 CBC Comment DIFF FINAL Differential Comment Sodium Level 140 MEQ/L Potassium Level 3.8 MEQ/L Chloride Level 104 MEQ/L Carbon Dioxide Level 30.3 MEQ/L Anion Gap 6 MEQ/L Blood Urea Nitrogen 13 MG/DL Creatinine 0.76 MG/DL Estimat Glomerular Filtration 76 ML/MIN Rate Random Glucose 86 MG/DL Calcium Level 9.1 MG/DL Total Bilirubin 1.2 MG/DL Aspartate Amino Transf 26 U/L (AST/SGOT) Alanine Aminotransferase 33 U/L (ALT/SGPT) Alkaline Phosphatase 103 U/L Total Creatine Kinase 126 U/L Creatine Kinase MB 2.3 NG/ML Troponin I LESS THAN 0.02 NG/ML Total Protein 7.2 GM/DL Albumin 3.7 GM/DL Differential Diagnosis Differential diagnosis includes palpitations, arrhythmia, dehydration, orthostatic changes, hypertensive urgency, hypertensive emergency, intracranial hemorrhage, electrolyte abnormality. Narrative Course Patient was initially evaluated by the previous physician, Dr. Miner. Please refer to the initial history, physical, diagnostic evaluation, and treatment modality plan. The patient was signed out at 7 PM with laboratory evaluation and CT of the brain pending. CT the brain reveals chronic small vessel ischemic vasculopathy, however, no acute abnormalities noted. Chest x- ray unremarkable. Laboratory evaluation is unremarkable. The patient's blood pressure came down to 177/81. The patient had no evidence of ectopy in the emergency department. The patient was reevaluated at 8:07 PM. The patient symptoms have resolved, she has no palpitations or shortness of breath. The patient was just recently admitted to the hospital for a TIA workup, I did advise her to follow-up with her associate media director for an outpatient Holter monitor. The patient states she was scheduled for Holter monitor however they stated that a TIA was not appropriate diagnosis for the Holter monitor. She will follow-up with her associate media director Dr. Saunders. She also stated they were supposed to change her Cymbalta from 60 mg daily to 30 mg daily. Therefore, I will write for Cymbalta 30 mg daily for 2 weeks until she can see her psychiatrist Dr. Vazquez. The patient is advised to return if symptoms worsen or progress. Diagnosis Primary Impression: Palpitations Additional Impression: Dyspnea Qualified Code: R06.00 - Dyspnea, unspecified type Patient Instructions: General Instructions Additional Instruction: Please provide a patient a copy of her CT results, chest x-ray results, and lab results at discharge. Follow-up with her primary physician. Return if symptoms worsen or progress. Follow-up with your associate media director. Med/Other Pt SpecificInfo: Prescription(s) given, Existing Med Changed ( change Cymbalta for cystoscopy milligrams daily to 30 mg daily) Scripts Duloxetine (Cymbalta )30 Mg Capdr30 Mg PO DAILY #14 CAP Ref 0 Prov:Francisco Sahni MD 02/13/17 Disposition: DISCHARGE HOME Condition: Stable Francisco Sahni MD Feb 13, 2017 19:17
--- NOTE | 2017-02-13 19:20 | PD ---
HPI Chief Complaint: Syncope/Near-Syncope Time Seen by Provider: 19:07 Travel History International Travel<30 days: No Contact w/Intl Traveler<30days: No Traveled to known affect area: No History of Present Illness HPI This is a 76-year-old female with history of hypertension, meningitis in the past, depression, who presents here after having an episode of palpitations and shortness of breath. The patient states that she was in her kitchen and went to bend down to get something out of the safe deposit box rental clerk when she started experiencing severe shortness of breath and palpitations. She denies any chest pressure or chest pain. She did report nausea and some diaphoresis. She denies any previous episodes. There are no other complaints time my examination. PFSH Past Medical History Anxiety: Yes Depression: Yes High Cholesterol: Yes Cerebrovascular Accident: Yes (COUPLE MONTHS AGO) Diminished Hearing: No (COUNCIL) Diverticulitis: Yes Gastrointestinal Disorders: Yes (ULCERATIVE COLITIS) Genitourinary: Yes (GENITAL HERPES) Hypertension: Yes Musculoskeletal: Yes (SCOLIOSIS WITH A NOBLE) Neurologic: Yes (HX MENINGITIS) Psychiatric: Yes (SUICIDE ATTEMPT 2004) Sleep Apnea: Yes (Uses CPAP at night) Thyroid Disease: Yes (hypothyroid) Influenza Vaccination: No Past Surgical History Body Medical Devices: rods in spine and interstim in buttocks Gynecologic Surgery: Yes (OOPHERECTOMY 2004) Hysterectomy: Yes Other Surgery: Yes (feet) Social History Alcohol Use: No Tobacco Use: No Substance Use: No Allergies-Medications (Allergen,Severity, Reaction): Coded Allergies: Augmentin (Verified Allergy, Mild, 02/13/17) Codeine (Verified Allergy, Mild, 02/13/17) Iodinated Contrast Media (Verified Allergy, Mild, Flushing, 02/13/17) Percocet (Verified Allergy, Mild, 02/13/17) Sulfa (Verified Allergy, Mild, 02/13/17) Tetanus Immune Globulin (Verified Allergy, Mild, 02/13/17) Xanax (Verified Allergy, Mild, 02/13/17) MRI PRECAUTION (Verified Adverse Reaction, Unknown, 02/13/17) PER PATIENT SHE IS UNABLE TO HAVE AN MRI DUE TO HER STIMULATOR. 02/07/2017 EG Reported Meds & Prescriptions Reported Meds & Active Scripts Active Lisinopril 5 Mg Tab 5 Mg PO DAILY Aspirin Low Strength (Aspirin) 81 Mg Chew 162 Mg CHEW DAILY Reported Flonase Nasal [place] (Fluticasone Nasal [place]) 50 Mcg/Act [place] 2 [place] EACH NARE DAILY Apriso (Mesalamine) 0.375 Gm Caper 1.5 Gm PO DAILY Levothyroxine (Levothyroxine Sodium) 75 Mcg Tab 75 Mcg PO DAILY Nizoral Topical Shampoo (Ketoconazole) 2% Sham 1 Applic TOPICAL THREE TIMES A WEEK Apply to scalp Modafinil 200 Mg Tab 200 Mg PO DAILY Duloxetine DR (Duloxetine HCl) 60 Mg Capdr 60 Mg PO BID Famciclovir 500 Mg Tab 500 Mg PO BID Trihexyphenidyl (Trihexyphenidyl HCl) 5 Mg Tab 2.5 Mg PO TID Atorvastatin (Atorvastatin Calcium) 40 Mg Tab 40 Mg PO HS Tramadol Hydrochloride (Tramadol HCl) 50 Mg Tab 50 Mg PO QID PRN Pantoprazole (Pantoprazole Sodium) 40 Mg Tab 40 Mg PO DAILY Ziprasidone 20 Mg Cap 20 Mg PO BID Gabapentin 300 Mg Cap 300 Mg PO TID Metoprolol Succinate ER 24 HR (Metoprolol Succinate) 25 Mg Tab 25 Mg PO DAILY Canasa Supp (Mesalamine) 1,000 Mg Supp 1,000 Mg RECTAL HS Review of Systems Except as stated in HPI: all other systems reviewed are Neg General / Constitutional: No: Fever, Chills HENT: Positive: Lightheadedness, No: Headaches, Neck Pain Cardiovascular: Positive: Palpitations, No: Chest Pain or Discomfort Respiratory: Positive: Shortness of Breath, No: Cough Gastrointestinal: Positive: Nausea, No: Vomiting, Abdominal Pain Genitourinary: No: Dysuria, Incontinence Musculoskeletal: Positive: Weakness (generalized), No: Pain Neurologic: Positive: Weakness (generalized), Syncope (near syncope), No: Headache, Change in Mentation, Incontinence Physical Exam Narrative GENERAL: Well-nourished, well-developed patient home in no acute respiratory distress. SKIN: Focused skin assessment warm/dry. HEAD: Normocephalic last atraumatic. EYES: No scleral icterus. No injection or drainage. NECK: Supple, trachea midline. CARDIOVASCULAR: Regular rate and rhythm without murmurs, gallops, or rubs. RESPIRATORY: Breath sounds equal bilaterally. No accessory muscle use. GASTROINTESTINAL: Abdomen soft, non-tender, nondistended. MUSCULOSKELETAL: No cyanosis, or edema. NEUROLOGICAL: Awake and alert. Cranial nerves II through XII intact. Motor and sensory grossly within normal limits. Five out of 5 muscle strength in all muscle groups. Normal speech. Patient does exhibit lipsmacking tardive dyskinesia type episodes. Data Data Last Documented VS Vital Signs Date Time Temp Pulse Resp B/P Pulse Ox O2 Delivery O2 Flow Rate FiO2 02/13/17 18:58 96 Room Air 02/13/17 18:04 61 17 193/84 02/13/17 15:44 98.5 Orders Complete Blood Count With Diff (02/13/17 18:20) Comprehensive Metabolic Panel (02/13/17 18:20) Ckmb (Isoenzyme) Profile (02/13/17 18:20) Troponin I (02/13/17 18:20) Chest, Single Ap (02/13/17 18:20) Ct Brain W/O Iv Contrast(Rout) (02/13/17 18:20) Ecg Monitoring (02/13/17 18:20) Iv Access Insert/Monitor (02/13/17 18:20) Oximetry (02/13/17 18:20) Sodium Chloride 0.9% Flush (Ns Flush) (02/13/17 18:30) Sodium Chlor 0.9% 1000 Ml Inj (Ns 1000 M (02/13/17 18:20) Hydralazine Inj (Apresoline Inj) (02/13/17 18:30) MDM Medical Decision Making Medical Screen Exam Complete: Yes Emergency Medical Condition: Yes Differential Diagnosis Hypertensive urgency versus metabolic derangement versus cardiac dysrhythmia Narrative Course 6 he 6-year-old female who presents after having an episode of palpitations and shortness of breath. The patient had near resolution of symptoms upon arrival and examination of this physician. The patient did have a blood pressure in the 190s systolic and 90s diastolic. She's been given 10 mg of IV hydralazine. CT and labs are pending at this time. The patient will be signed out to Dr. Francisco Sahni who will follow up on the labs and CT scan and make the appropriate disposition. If her blood pressure is still uncontrolled, she will likely need to be admitted for blood pressure control. Diagnosis Primary Impression: Near syncope Additional Impression: Uncontrolled hypertension Jefry Miner MD Feb 13, 2017 19:20
--- NOTE | 2017-02-13 19:29 | RADRPT ---
EXAM DATE/TIME: 02/13/2017 19:13 [place] COMPARISON: CT BRAIN W/O CONTRAST, February 07, 2017, 13:21. INDICATIONS : Patient complains of dizziness. RADIATION DOSE: 56.35 CTDIvol (mGy) MEDICAL HISTORY : Hypertension. Cardiovascular disease SURGICAL HISTORY : Hysterectomy. ENCOUNTER: Initial ACUITY: 1 day PAIN SCALE: 0/10 LOCATION: cranial TECHNIQUE: Multiple contiguous axial images were obtained of the head. Using automated exposure control and adj ustment of the mA and/or kV according to patient size, radiation dose was kept as low as reasonably a chievable to obtain optimal diagnostic quality images. DICOM format image data is available electro nically for review and comparison. FINDINGS: CEREBRUM: Scattered areas of low attenuation in the white matter. The ventricles are normal for age. No eviden ce of midline shift, mass lesion, hemorrhage or acute infarction. No extra-axial fluid collections a re seen. POSTERIOR FOSSA: The cerebellum and brainstem are intact. The 4th ventricle is midline. The cerebellopontine angle i s unremarkable. EXTRACRANIAL: The visualized portion of the orbits is intact. SKULL: The calvaria is intact. No evidence of skull fracture. CONCLUSION: Chronic ischemic small vessel vasculopathy. No acute intracranial abnormalities.. Lenny Tong MD on February 13, 2017 at 19:25 Board Certified Radiologist. This report was verified electronically.
[2017-02-13 19:30] LABS: AUTOMATED NEUTROPHIL # 5.2 TH/MM3 (1.8-7.7); BASOPHIL % 0.5 % (0.0-2.0); EOSINOPHIL # 0.1 TH/MM3 (0-0.4); EOSINOPHIL % 1.1 % (0.0-4.0); HEMATOCRIT 39.7 % (35.0-46.0); HEMO FLAGS DIFF FINAL; LYMPH % 21.7 % (9.0-44.0); LYMPHOCYTE # 1.6 TH/MM3 (1.0-4.8); MEAN CELL VOLUME 92.5 FL (80.0-100.0); MEAN CORPUSCULAR HEMOGLOBIN 30.9 PG (27.0-34.0); MEAN CORPUSCULAR HGB CONC 33.4 % (32.0-36.0); MONO % 7.6 % (0.0-8.0); NEUT % 69.1 % (16.0-70.0); PLATELET COUNT 190 TH/MM3 (150-450); RED BLOOD COUNT 4.29 MIL/MM3 (4.00-5.30); RED CELL DISTRIBUTION WIDTH 14.1 % (11.6-17.2); WHITE BLOOD COUNT 7.5 TH/MM3 (4.0-11.0)
[2017-02-13 19:46] LABS: ANION GAP 6 MEQ/L (5-15); AST (GOT) 26 U/L (15-37); BICARBONATE 30.3 MEQ/L (21.0-32.0); BLOOD UREA NITROGEN 13 MG/DL (7-18); CHLORIDE 104 MEQ/L (98-107); GLOMERULAR FILTRATION RATE 76 ML/MIN (>89); POTASSIUM 3.8 MEQ/L (3.5-5.1); SODIUM (NA) 140 MEQ/L (136-145)
[2017-02-13 19:47] LABS: ALT (GPT) 33 U/L (10-53)
[2017-02-13 19:50] LABS: ALKALINE PHOSPHATASE 103 U/L (45-117); CREATINE KINASE 126 U/L (26-192); TOTAL BILIRUBIN ADULT 1.2 MG/DL (0.2-1.0)
[2017-02-13 20:03] LABS: CKMB 2.3 NG/ML (0.5-3.6)
[2017-02-13] MEDS ORDERED: CYMB30CA PO (20:18)
--- NOTE | 2017-02-14 12:53 | EKG ---
Date Performed: 02/13/2017 Time Performed: 18:16:18 PTAGE: 66 years EKG: Sinus rhythm POSSIBLE LEFT ATRIAL ENLARGEMENT NONSPECIFIC ST & T-WAVE ABNORMALITY BORDERLINE ECG PREVIOUS TRACING : 02/07/2017 12.48 DOCTOR: Mitchell Khoury Interpretating Date/Time 02/14/2017 12:48:58
== END 2017-02-13 20:36 | disposition home or self-care (01) ==
LOC: NEPE 15:41
DX: R55 Syncope and collapse (principal); I10 Essential (primary) hypertension; R00.2 Palpitations; R06.00 Dyspnea, unspecified; R06.02 Shortness of breath; R42 Dizziness and giddiness; I51.7 Cardiomegaly; R94.31 Abnormal electrocardiogram [ECG] [EKG]; E03.9 Hypothyroidism, unspecified
CPT/HCPCS: 70450; 71010; 80053; 82550; 82552; 84484; 85025; 93005; 96361; 96374; 99285; J0360; J7030

== ENCOUNTER 2017-03-19 10:03 | Day surgery (SDC) | payer MEDICARE, OTHER ==
[~2017-03-19] VITALS: Ht 154.9 cm; Wt 70.5 kg
[~2017-03-19 10:03] MED LIST changes: +APRI0.372 PO; +DULO1CAP3 PO; +FLUT1SPR5 EACH NARE; +KETOC2%T TOPICAL; -L-THPOW; +LEVO75TA3 PO; +MODA200T12 PO; -THYR0.237; -[UNRECOGNIZED DRUG - OTHER] TOPICAL
[2017-03-19] MEDS ORDERED: IOHEXOL 350 MG/ML 50 ML BTL (for Cath Lab) OTHER ONE (10:04)
[2017-03-19 10:50] LABS: AUTOMATED NEUTROPHIL # 3.5 TH/MM3 (1.8-7.7); BASOPHIL % 0.6 % (0.0-2.0); EOSINOPHIL % 0.9 % (0.0-4.0); HEMATOCRIT 39.4 % (35.0-46.0); LYMPH % 20.5 % (9.0-44.0); MEAN CELL VOLUME 93.4 FL (80.0-100.0); MEAN CORPUSCULAR HEMOGLOBIN 29.9 PG (27.0-34.0); MONO % 8.5 % (0.0-8.0); NEUT % 69.5 % (16.0-70.0); PLATELET COUNT 195 TH/MM3 (150-450); RED BLOOD COUNT 4.22 MIL/MM3 (4.00-5.30); RED CELL DISTRIBUTION WIDTH 14.2 % (11.6-17.2); WHITE BLOOD COUNT 5.1 TH/MM3 (4.0-11.0)
[2017-03-19 10:54] LABS: PROTHROMBIN TIME - PATIENT 11.4 SEC (9.8-11.6)
[2017-03-19 10:56] LABS: HEMO FLAGS AUTO DIFF
[2017-03-19] MEDS ORDERED: ASPIRIN 81 MG CHEW TAB PO SCH (11:00)
[2017-03-19] MEDS ORDERED: NS 1000P @30 MLS/HR (KVO) IV SCH (11:00)
[2017-03-19 11:01] LABS: BICARBONATE 30.8 MEQ/L (21.0-32.0); POTASSIUM 4.1 MEQ/L (3.5-5.1)
[2017-03-19 11:11] VITALS: BP 145/72; PULSE 52; RESP 16; TEMP 98.2; O2SAT 96
[2017-03-19] MEDS ORDERED: METO50TA11 PO (11:31)
[2017-03-19 11:32] LABS: PLATELET ESTIMATE SMEAR NORMAL (NORMAL); PLATELET MORPHOLOGY ENLARGED (NORMAL); SCAN/DIFF AUTO DIFF CONFIRMED
[2017-03-19] MEDS ORDERED: HEPARIN-NS/PF INJ 500 ML ONE (13:13)
[2017-03-19] MEDS ORDERED: MIDAZOLAM HCL 2 MG/2 ML VIAL ONE (13:15)
[2017-03-19] MEDS ORDERED: HEPARIN SODIUM - IV 10,000 UNITS/10 ML VIAL ONE (13:31)
[2017-03-19] MEDS ORDERED: BACITRACIN OINT 0.9 GM PKT TOP ONE (13:45)
[2017-03-19] MEDS ORDERED: SODIUM CHLORIDE 0.9% FLUSH 10 ML FLUSH PRN (13:45)
[2017-03-19] MEDS ORDERED: MISC INFORMATION XX ONE (13:45)
--- NOTE | 2017-03-19 13:46 | CATHPROC ---
[employer] HIS Report Study Information Study Number Admission Scheduled Start Study Start [id number] Mar 19 2017 10:03AM 03/19/2017 Mar 19 2017 1:02PM [place] [facility] Cardiac Catheterization Admit Source Facility Department Other [facility] Worker Physician and Clinical Staff Initial Armando Cotter Office Machine Rep[employer] Shop SupervisorYolanda Vuong,RN Office Machine Repair Shop SupervisorJaqui Aden,TRISTA Recorder Sam Church,RT(R) Scrub Arlene HuertaRT(R) Procedures Performed Procedure Location (Site) Vessel Name Coronary Angiograms LCA Left Coronary Coronary Angiograms RCA Right Coronary L Heart Cath LV Gram-hand inj. LV LV Ventricle Equipment Time Office Machine Repair Shop Supervisor Description Size Mfg Part Number Used/Scraped TRANSDUCER, TRUWAVE [id number] 13:03 HUNTLEY HAZEL * Used W/STOCKCOCK *[id number] *[id number] *[id number] 13:03 [employer] PACK, CCL CUSTOM * Used *[id number] 13:03 [employer] PACER PEN, SKIN DUAL W/ RULER * Used *[id number] 13:03 [employer]it WIRE, 3MMJ .035 180CM 180CM Used *[id number] 13:03 NAMIC MANIFOLD, 4 PORT * Used *[id number] 13:03 [employer]COMED OMNIPAQUE, 350 MG, 150ML 150ML [id number] 13:03 [employer] MEDICAL BLANKET,WARM AIR CCL * Used *[id number] 13:03 [employer] MEDICAL SHEATH, FR4 TERUMO (10CM) FR 4 Used *[id number] History: Current Medications Medication Dosage/Unit Route Frequency Last Date/Time Taken ASA LOPRESSOR Statins (any) LISINOPRIL History: Allergies Allergy Reaction Augmentin codeine Percocet Sulfa tetanus immune globulin Xanax MRI PRECAUTION Iodinated Contrast Media Flushing Iodinated Contrast- Oral and IV Flushing Dye Sulfa (Sulfonamide Antibiotics) alprazolam oxycodone acetaminophen clavulanic acid amoxicillin quetiapine History: Risk Factors Family History of Hypertension Dyslipidemia Previous [place] Previous Heart Failure Premature CAD Yes Yes Yes No No Prior Valve Prior PCI Prior CABG Surgery No No No Cerebrovascular Peripheral Artery Chronic Lung On Dialysis Diabetes Disease Disease Disease No Yes No No No History: CV Disease Selection Items Known CAD History: Stress Tests Stress or Imaging Studies Performed Yes Standard Exercise Stress Test No Stress Echo No Stress Test SPECT Stress Test SPECT Result Yes Positive Stress Test CMR No Cardiac CTA Coronary Calcium Score No No History: Other Disease Selection Items CAD HTN History: Other Current Smoker Method Quit Packs a Day Years Used Pack Years No Cigarettes 35 Years Ago 1 15 15 Labs Hgb (g/dl) Hct (%) RBC (MIL/MM3) WBC (l/cumm) Platelets (thousands) 11.60-17.00 35.00-51.00 4.00-5.90 4.00-11.00 150.00-450.00 12.6 39.4 4.2 5.1 195 Glucose (mg/dl) BUN (mg/dl) Creatinine (mg/dl) BUN:Creatinine (1:x) 74.00-106.00 7.00-18.00 0.50-1.30 10.00-20.00 91 16 0.7 22.9 Na (meq/l) K (meq/l) Cl (meq/l) CO2 (mmol/L) Ca (mg/dl) 136.00-145.00 3.50-5.10 98.00-107.00 21.00-32.00 8.50-10.10 144 4.1 106 30.8 8.8 PT (sec) INR (PTT:PT) 9.80-11.60 0.90-1.10 11.4 1 CPK-MB (ng/ML) 0.50-3.60 Not Drawn Medication Medication Total Dose (Bolus/Oral) Medication Total Dosage/Unit 1% XYLOCAINE 20 mL VERSED 1 mg Medications (Bolus/Oral) Medication Time Given Dosage/Unit Administered By Reason VERSED 03/19/2017 1:28:31 PM 1 mg Jaqui Flynn 1 mg VERSED given in lab by Jaqui Flynn, RN in Left Antecubital via Peripheral IV. 1% XYLOCAINE 03/19/2017 1:30:25 PM 20 mL Yolanda Block 20 mL 1% XYLOCAINE given in lab by Yolanda Block, RN via Subcutaneous. Medication (Drip) Medication Time Given Dosage/Unit Concentration/Unit Diluent (ml) Solution IV Solutions 03/19/2017 1:09:28 PM 0 mL (IV) 500 NaCl .9 IV Solutions given in lab by Yolanda Block, RN in Left Antecubital via Peripheral IV. Pump/Drip Farzad w = 20 ml/hr using NaCl .9. Initial Case Assessment Cardiovascular HR Rhythm NIBP Chest Pain 55 Sinus 128/75 0 Edema Present Skin color Skin None Normal Warm Dry Circulatory - Right Pulses Dorsalis Pedis Femoral 2 2 Scale (0,1,2,3,4,d) Circulatory - Left Pulses Dorsalis Pedis Femoral 2 2 Scale (0,1,2,3,4,d) Neurological State Oriented to time-place- Alert Moves all extremities person Respiration - General Respiration Rate SpO2 (%) O2 (lpm) (B/min) 16 95 0 Final Case Assessment Cardiovascular HR Rhythm NIBP Chest Pain 52 Sinus 141/70 0 Edema Present Skin color Skin None Normal Warm Dry Circulatory - Right Pulses Dorsalis Pedis Femoral 2 2 Scale (0,1,2,3,4,d) Circulatory - Left Pulses Dorsalis Pedis Femoral 2 2 Scale (0,1,2,3,4,d) Neurological State Oriented to time-place- Alert Moves all extremities person Respiration - General Respiration Rate SpO2 (%) O2 (lpm) (B/min) 9 98 0 Chronological Log Time Study Chronological Log 13:04:58 Patient arrived via Bed. 13:04:59 Patient Name, D.O.B, / Armband Verified By R.N. 13:05:01 Consent signed by the physician and the patient and verified by the [facility] Work[facility] staff. 13:05:05 Pre-op and post- op instructions given; patient acknowledges understanding of instructions. 13:05:08 Verbal Stimulation=2 Physical Stimulation=2 Airway=2 Respiration=2 TOTAL=8. (0=absent, 1=li mited, 2=present) 13:05:28 Presedation assessment performed by Barn Worker RN. 13:05:30 Patient has been NPO for More than 6Hrs. 13:06:07 Skin Breakdown-none per pt 13:06:15 [place] Prominences Protected Assessment: Initial Case, HR=55 BPM, Rhythm=Sinus, OWYZ=262/75 mmhg, Chest Pain=0, Edema=None, Color=Normal, Skin = Warm, Dry Right Pulses: Mckinley Ped=2, Femoral=2 13:06:21 Left Pulses: Mckinley Ped=2, Femoral=2 Neurological: State=Alert, Ox3, SZYMANSKI Respiration: Resp=16 B/min, SpO2=95 %, O2=0 lpm 13:08:41 Patient Warmer Placed on the Table. 13:08:51 A # 20 IV was noted in the Antecubital (left). Grade = 0 IV Solutions given in lab by Yolanda Block, RN in Left Antecubital via Peripheral IV. Pump/Dr ip Flow = 20 ml/hr using 13:09:28 NaCl .9. 13:10:00 History and physical on the chart or being dictated. Vitals capture started with the following parameters, Patient=Adult, Interval=5 min, Initial Pr yjjjqo=607 mmHg, 13:10:10 Deflation Rate=5 mmHg, Cuff placed on Left Arm 13:11:12 HR=55 bpm, NMWT=647/75 mmhg, SpO2=95.0 %, Resp=7 B/min, Pain=0, Daniel=10, Baird=2 13:16:35 HR=53 bpm, KYZG=738/63 mmhg, SpO2=96.0 %, Resp=17 B/min, Pain=0, Daniel=10, Baird=2 13:19:14 Bilateral groins prepped with 2% chlorhexidine, and with a 3 min. waiting time. 13:20:53 HR=50 bpm, CNAW=295/71 mmhg, SpO2=96.0 %, Resp=31 B/min, Pain=0, Daniel=10, Baird=2 13:25:38 Pressure channel 1 zeroed. 13:25:43 MD paged 13:25:46 HR=52 bpm, GKDA=318/74 mmhg, SpO2=96.0 %, Resp=14 B/min, Pain=0, Daniel=10, Baird=2 13:27:48 MD arrived. 13:28:31 1 mg VERSED given in lab by Jaqui Flynn, TRISTA in Left Antecubital via Peripheral IV. Time Out. Correct patient, correct procedure,correct physician, power injector not loaded with contrast with surgical 13:29:58 team present. Time Out Concurred by , individual staff in procedure 13:30:23 Case Start 13:30:25 20 mL 1% XYLOCAINE given in lab by Yolanda Block, TRISTA via Subcutaneous. 13:30:52 HR=54 bpm, MRMZ=527/68 mmhg, SpO2=97.0 %, Resp=29 B/min, Pain=0, Daniel=10, Baird=2 13:31:42 Access site was Right Femoral Artery. 13:32:05 A SHEATH, FR4 TERUMO (10CM) FR 4 was advanced into the Fem Art (right) using the Percutaneo us technique. 13:32:16 Reference ECG taken A JR 4.0 INFINITI CATHETER FR 4 was advanced over a wire. OMNIPAQUE, 350 MG, 150ML 150ML was us ed for 13:32:35 injections. Recorded Pressure: LV, HR=50, Condition=Condition 1 13:33:51 (Left Ventricle) LV 155/6/18 13:33:55 The LV was manually injected with 6 cc's and visualized. OMNIPAQUE, 350 MG, 150ML 150ML use d. Recorded Pressure: LV, Ao, HR=50, Condition=Condition 1 13:34:07 (Left Ventricle) LV 147/7/12, (Aorta) Ao 157/73/105 Recorded Pressure: Ao, HR=49, Condition=Condition 1 13:34:19 (Aorta) Ao 159/73/105 13:34:32 The RCA was injected and visualized at various angles. OMNIPAQUE, 350 MG, 150ML 150ML used . 13:35:02 Catheter was removed A JL 4.0 INFINITI CATHETER FR 4 was advanced over a wire. OMNIPAQUE, 350 MG, 150ML 150ML was us ed for 13:35:29 injections. 13:35:49 HR=51 bpm, KTQF=250/70 mmhg, SpO2=99.0 %, Resp=26 B/min, Pain=0, Daniel=10, Baird=2 13:36:05 The LCA was injected and visualized at various angles. OMNIPAQUE, 350 MG, 150ML 150ML used . 13:37:08 Catheter was removed 13:37:13 Case End Assessment: Final Case, HR=52 BPM, Rhythm=Sinus, SNJG=533/70 mmhg, Chest Pain=0, Edema=None, Color=Normal, Skin = Warm, Dry Right Pulses: Mckinley Ped=2, Femoral=2 13:38:28 Left Pulses: Mckinley Ped=2, Femoral=2 Neurological: State=Alert, Ox3, SZYMANSKI Respiration: Resp=9 B/min, SpO2=98 %, O2=0 lpm 13:39:11 Sterile dressing applied to site 13:39:12 No case complications noted. 13:39:24 Cine recording checked. 13:40:41 HR=53 bpm, NIBP=93/57 mmhg, SpO2=98.0 %, Resp=24 B/min, Pain=0, Daniel=10, Baird=2 13:41:47 Bedside Report will be given. 13:41:53 A Left Heart Cath was performed. 13:43:30 A Left Heart Cath was performed. 13:45:35 Patient moved to stretcher End Study - Contrast Media Used In Study Contrast Total Opened (mL) Total Used (mL) Total Wasted (mL) Omnipaque 150 20 130 End Study - Maximum Contrast Load Max Contrast Load (mL) 503.6 End Study - Radiation Exposure Fluoro Time (minutes) 1.2 End Study - Patient Disposition Complications Transferred To Interventional Outcome No Outpatient Bed No attempt made
[2017-03-19] MEDS ORDERED: SODIUM CHLORIDE 0.9% FLUSH 10 ML FLUSH SCH (21:00)
--- NOTE | 2017-03-19 22:56 | MA ---
cc: EUGENIO KULKARNI M.D. DATE: 03/19/2017 PROCEDURE PERFORMED: Left heart catheterization. Left ventriculography. Coronary angiography. INDICATION: Moderate size fixed defect in the apical wall. Known history of 50% proximal LAD lesion. Hypertension, hyperlipidemia. PROCEDURE: The patient was brought to the Cardiac Catheterization Laboratory, prepped and draped in the usual sterile fashion. 10 cc of 1% lidocaine was used to locally anesthetize the right common femoral artery. A 4 Swazi sheath was successfully placed in the right common femoral artery. 4 Swazi JR4 and JL4 catheters were used to perform left and right coronary angiography and left ventriculography. FINDINGS: LV pressure is 140/7/8, ejection fraction 75%. The right coronary artery is a very large dominant vessel. It has a focal 10 to 20% proximal stenosis, mild diffuse disease in the mid segment up to 10% angiographically. It would estimate that the vessel diameter is probably 6 millimeters. The left main coronary artery has no significant disease angiographically. The left circumflex vessel has no significant disease angiographically. There is mild disease in the proximal segment up to 10 to 20% angiographically. The first obtuse marginal vessel comes off the mid to distal left circ. It is a small to medium size vessel, tortuous, no significant obstructive disease. It is distal, very small posterior lateral artery with no significant obstructive disease, probably 1 millimeter in diameter. The LAD is transapical. At the bifurcation with a medium size diagonal vessel in the proximal to mid segment it has a 30 to 40% stenosis. This appears to be improved compared to the last angiogram where I estimate it to be 50%. Beyond the mid LAD the vessel is very tortuous. There is almost 160 degree bend in the mid to distal segment followed by 170 degree bend in the opposite direction just after this bend. The first diagonal artery is a medium size vessel. No significant obstructive disease. CONCLUSIONS: 1. Angiographically mild three-vessel coronary disease in a right-dominant system as detailed above. 2. Hyperdynamic LV systolic function of 75%. 3. Normal LV pressures 140/7/8. 4. Recommend continued medical management of coronary artery disease, cardiac risk factor modification. 5. The patient will continue aspirin 81 milligrams daily, Lipitor 20 milligrams hs, Lisinopril 5 milligrams daily, metoprolol extended release 50 milligrams daily. MD MACKENZIE Solis/GERSON /1:40 PM /10:42 PM
--- NOTE | 2017-03-20 16:56 | EKG ---
Date Performed: 03/19/2017 Time Performed: 10:49:54 PTAGE: 66 years EKG: Sinus bradycardia. Possible septal infarct - age undetermined Inferior/lateral ST-T changes are nonspecific Low QRS voltages in precordial leads Compared to previous tracing, the patient is no w bradycardic Abnormal ECG PREVIOUS TRACING : 02/13/2017 18.16 DOCTOR: Celia Manzanares Interpretating Date/Time 03/20/2017 16:55:44
== END 2017-03-19 16:54 | disposition home or self-care (01) ==
LOC: HDOC 10:03 → HDIC 10:03 → HDOC 16:54
PROVIDERS: ATTEND Internal Medicine Interventional Cardiology
DX: I25.10 Atherosclerotic heart disease of native coronary artery without angina pectoris (principal); I10 Essential (primary) hypertension; E78.5 Hyperlipidemia, unspecified; R53.83 Other fatigue; M41.9 Scoliosis, unspecified; K51.90 Ulcerative colitis, unspecified, without complications; Z87.891 Personal history of nicotine dependence; Z79.82 Long term (current) use of aspirin; Z79.899 Other long term (current) drug therapy
CPT/HCPCS: 80048; 85025; 85610; 93005; 93458; C1769; C1893; J1644; J2250; Q9967